=== PATIENT | male | born 1960 | race Caucasian/White ===

== ENCOUNTER 2018-01-08 16:16 | Emergency (ER) | payer OTHER, SELFPAY ==
[2018-01-08] MEDS ORDERED: ONDANSETRON 4 MG/2 ML VIAL ONE (17:08)
[2018-01-08] MEDS ORDERED: MORPHINE 4 MG/ML SYR ONE (17:08)
[2018-01-08 17:28] LABS: Absolute Lymphocytes (CBC) 2.2 K/uL (0.7-4.9); Absolute Monocytes 0.8 K/uL (0.1-1.3); Absolute Neutrophil 6.7 K/uL (1.8-8.0); Basophils % 0.8 % (0-1.3); Hematocrit 50.2 % (39.6-49.0); MCH 30.6 pg (27.0-35.0); MCV 90.1 fL (80-100); MPV 8.4 fL (7.6-11.3); Monocytes % 8.4 % (3.3-12.3); RBC Red Blood Cell Count 5.57 M/uL (4.33-5.43)
[2018-01-08 17:29] LABS: Protime INR 1.03
--- NOTE | 2018-01-08 17:31 | RAD REPORT ---
EXAM DESCRIPTION: VAS - Extremity Venous Uni Ltd - 01/08/2018 5:25 pm CLINICAL HISTORY: Leg swelling and edema. COMPARISON: None. FINDINGS: Right lower extremity venous system was interrogated with Doppler technique. Normal flow, compressibility and augmentation was noted. There is no DVT present. IMPRESSION: No evidence of right lower extremity deep venous thrombosis.
[2018-01-08 17:36] LABS: Potassium 3.5 mEq/L (3.6-5.0)
--- NOTE | 2018-01-08 17:55 | RAD REPORT ---
EXAM DESCRIPTION: Za Single View01/08/2018 5:26 pm CLINICAL HISTORY: Chest pain COMPARISON: none FINDINGS: A 5 millimeter nodular opacity overlies the right upper lobe. An 7 millimeter nodular opac ity overlies the right lower lobe. The left lung appears clear. The heart is normal size IMPRESSION: Two sub centimeter nodular opacities overlying the right lung may represent pulmonary no dules or vessels seen on end. Follow-up PA and lateral chest series in 1 month is recommended for re- evaluation
[2018-01-08 18:17] LABS: Thyroid Stimulating Hormone 2.34 uIU/mL (0.34-5.60)
[2018-01-08 18:22] LABS: Magnesium 2.2 mg/dL (1.8-2.5)
--- NOTE | 2018-01-08 18:23 | EDPHYS ---
Physician Documentation [facility] Name: Fly Benavides Age: 57 yrs Sex: Male : 1960 Arrival Date: 01/08/2018 Time: 16:21 Bed 6 Private MD: ED Physician Derrick Foster HPI: 01/08 17:42 This 57 yrs old Male presents to ER via Ambulatory with complaints of Leg pain. jr8 17:42 The patient presents with pain. The complaints affect the right leg. Onset: The jr8 symptoms/episode began/occurred acutely, yesterday. Modifying factors: The symptoms are alleviated by nothing. the symptoms are aggravated by movement. Associated signs and symptoms: The patient has no apparent associated signs or symptoms. Severity of symptoms: At their worst the symptoms were moderate, in the emergency department the symptoms are unchanged. The patient has not experienced similar symptoms in the past. The patient has not recently seen a physician. denies trauma to leg . Historical: - Allergies: 16:37 No Known Allergies; hb - Home Meds: 16:37 Exforge 5-160 mg oral tab [Active]; hb - PMHx: 16:37 Hypertension; hb - PSHx: 16:37 kidney; hb - Immunization history:: Adult Immunizations up to date. - Social history:: Smoking status: Patient uses tobacco products, smokes one-half pack cigarettes per day. ROS: 17:42 Eyes: Negative for injury, pain, redness, and discharge, ENT: Negative for injury, jr8 pain, and discharge, Neck: Negative for injury, pain, and swelling, Cardiovascular: Negative for chest pain, palpitations, and edema, Respiratory: Negative for shortness of breath, cough, wheezing, and pleuritic chest pain, Abdomen/GI: Negative for abdominal pain, nausea, vomiting, diarrhea, and constipation, Back: Negative for injury and pain, Skin: Negative for injury, rash, and discoloration, Neuro: Negative for headache, weakness, numbness, tingling, and seizure. 17:42 MS/extremity: Positive for pain, of the right leg, Negative for injury or acute deformity, decreased range of motion, erythema, paresthesias, swelling, tenderness. Exam: 17:42 Eyes: Pupils equal round and reactive to light, extra-ocular motions intact. Lids and jr8 lashes normal. Conjunctiva and sclera are non-icteric and not injected. Cornea within normal limits. Periorbital areas with no swelling, redness, or edema. ENT: Nares patent. No nasal discharge, no septal abnormalities noted. Tympanic membranes are normal and external auditory canals are clear. Oropharynx with no redness, swelling, or masses, exudates, or evidence of obstruction, uvula midline. Mucous membranes moist. Neck: Trachea midline, no thyromegaly or masses palpated, and no cervical lymphadenopathy. Supple, full range of motion without nuchal rigidity, or vertebral point tenderness. No Meningismus. Respiratory: Lungs have equal breath sounds bilaterally, clear to auscultation and percussion. No rales, rhonchi or wheezes noted. No increased work of breathing, no retractions or nasal flaring. Abdomen/GI: Soft, non-tender, with normal bowel sounds. No distension or tympany. No guarding or rebound. No evidence of tenderness throughout. Back: No spinal tenderness. No costovertebral tenderness. Full range of motion. Skin: Warm, dry with normal turgor. Normal color with no rashes, no lesions, and no evidence of cellulitis. Neuro: Awake and alert, GCS 15, oriented to person, place, time, and situation. Cranial nerves II-XII grossly intact. Motor strength 5/5 in all extremities. Sensory grossly intact. Cerebellar exam normal. Normal gait. 17:42 Cardiovascular: Rate: tachycardic, Rhythm: irregularly irregular, Pulses: Pulses are 2+ in right radial artery and left radial artery. Heart sounds: normal, normal S1and S2, no S3 or S4, no murmur, no rub, no gallop, Edema: is not appreciated, JVD: is not appreciated. 17:42 Musculoskeletal/extremity: Extremities: grossly normal except: noted in the right leg: no tenderness to palpation , ROM: intact in all extremities, Circulation is intact in all extremities. Sensation intact. Calves: are non-tender, have equal circumference. Vital Signs: 16:35 BP 134 / 91; Pulse 100; Resp 18; Temp 97.4; Pulse Ox 100% on R/A; Weight 104.33 kg; hb Height 5 ft. 9 in. (175.26 cm); Pain 9/10; 16:35 Body Mass Index 33.96 (104.33 kg, 175.26 cm) hb MDM: 16:40 Patient medically screened. 18:18 Data reviewed: vital signs, nurses notes, lab test result(s), EKG, radiologic studies, jr plain films, ultrasound. Data interpreted: Pulse oximetry: on room air is 100 %. Interpretation: normal. Counseling: I had a detailed discussion with the patient and/or guardian regarding: the historical points, exam findings, and any diagnostic results supporting the discharge/admit diagnosis, lab results, radiology results, the need for outpatient follow up, a kitchen runner, to return to the emergency department if symptoms worsen or persist or if there are any questions or concerns that arise at home. ED course: [id number] score of 1. Will start on antiplatelet therapy and to f/u with cardiology . 01/08 17:05 Order name: Basic Metabolic Panel; Complete Time: 18:23 01/08 17:05 Order name: CBC with Diff; Complete Time: 17:42 01/08 17:05 Order name: CPK; Complete Time: 18:23 01/08 17:05 Order name: Magnesium; Complete Time: 18:23 01/08 17:05 Order name: PT-INR; Complete Time: 17:42 01/08 17:05 Order name: TSH; Complete Time: 18:23 01/08 17:05 Order name: XRAY Chest (1 view); Complete Time: 17:56 01/08 17:05 Order name: EKG; Complete Time: 17:06 01/08 17:05 Order name: Cardiac monitoring; Complete Time: 17:12 01/08 17:05 Order name: EKG - Nurse/Tech; Complete Time: 17:12 01/08 17:05 Order name: US Extremity Venous Uni Ltd; Complete Time: 17:42 01/08 17:05 Order name: T4 Free; Complete Time: 18:23 01/08 17:05 Order name: IV Saline Lock; Complete Time: 17:12 01/08 17:05 Order name: Labs collected and sent; Complete Time: 17:12 01/08 17:05 Order name: O2 Per Protocol; Complete Time: 17:13 01/08 17:05 Order name: O2 Sat Monitoring; Complete Time: 17:13 jr8 Administered Medications: 17:10 Drug: morphine 4 mg Route: IVP; Site: left antecubital; sg 17:10 Drug: Zofran 4 mg Route: IVP; Site: left antecubital; sg Disposition: 01/08/18 18:23 Discharged to Home. Impression: Atrial fibrillation and flutter, Pain in right lower leg. - Condition is Stable. - Discharge Instructions: Atrial Fibrillation, Musculoskeletal Pain. - Prescriptions for Tylenol- Codeine #3 300-30 mg Oral Tablet - take 2 tablet by ORAL route every 6 hours As needed; 30 tablet. - Medication Reconciliation Form, Thank You Letter, Antibiotic Education, Prescription Opioid Use form. - Follow up: Ananth Ruiz MD; When: 2 - 3 days; Reason: Recheck today's complaints, Continuance of care, Re-evaluation by your physician. - Problem is new. - Symptoms have improved. Addendum: 01/23/2018 19:52 Co-signature as Attending Physician, Derrick Foster MD I agree with the assessment and k dr plan of care. Signatures: Dispatcher [employer] EDMS Alexis Diaz RN RN Derrick Foster MD MD [facility] Charlie Menendez PA PA jr8 Francie Ortiz RN RN Corrections: (The following items were deleted from the chart) 01/08 18:57 18:23 01/08/2018 18:23 Discharged to Home. Impression: Atrial fibrillation and flutter; sg Pain in right lower leg. Condition is Stable. Forms are Medication Reconciliation Form, Thank You Letter, Antibiotic Education, Prescription Opioid Use. Follow up: Ananth Ruiz; When: 2 - 3 days; Reason: Recheck today's complaints, Continuance of care, Re-evaluation by your physician. Problem is new. Symptoms have improved. jr8
--- NOTE | 2018-01-08 18:23 | ER ---
Nurse's Notes [facility] Name: Fly Benavides Age: 57 yrs Sex: Male : 1960 Arrival Date: 01/08/2018 Time: 16:21 Bed 6 Private MD: Diagnosis: Atrial fibrillation and flutter;Pain in right lower leg Presentation: 01/08 16:33 Presenting complaint: Patient states: Severe right lower leg pain 9/10 since last hb night. Pain is worse when bearing weight/ambulating. Transition of care: patient was not received from another setting of care. Onset of symptoms was January 07, 2018. Care prior to arrival: Medication(s) given: ASA, 1 hr SOLDERER ASSEMBLER. 16:33 Method Of Arrival: Ambulatory hb 16:33 Acuity: COURT 3 hb 18:50 Initial Sepsis Screen: Does the patient meet any 2 criteria? No. Patient's initial sg sepsis screen is negative. Does the patient have a suspected source of infection? No. Patient's initial sepsis screen is negative. Triage Assessment: 17:25 Injury Description: denies injury. sg Historical: - Allergies: 16:37 No Known Allergies; hb - Home Meds: 16:37 Exforge 5-160 mg oral tab [Active]; hb - PMHx: 16:37 Hypertension; hb - PSHx: 16:37 kidney; hb - Immunization history:: Adult Immunizations up to date. - Social history:: Smoking status: Patient uses tobacco products, smokes one-half pack cigarettes per day. Screenin:00 Abuse screen: Denies threats or abuse. Denies injuries from another. Nutritional sg screening: No deficits noted. Tuberculosis screening: No symptoms or risk factors identified. Never had TB. Fall Risk None identified. Assessment: 17:00 General: Appears in no apparent distress. comfortable, well groomed, well developed, sg well nourished, Behavior is calm, cooperative, appropriate for age. Pain: Complains of pain in lateral aspect of right calf and right parker Pain does not radiate. Quality of pain is described as aching, sharp, stabbing. Neuro: Level of Consciousness is awake, alert, obeys commands, Oriented to person, place, time, Model Technician are equal bilaterally Moves all extremities. Full function Gait is steady, Speech is normal, Facial symmetry appears normal. Cardiovascular: Heart tones S1 S2 present Capillary refill is brisk in bilateral fingers Patient's skin is warm and dry. Chest pain is denied. Respiratory: Airway is patent Respiratory effort is even, unlabored, Respiratory pattern is regular, symmetrical, Breath sounds are clear. Respiratory: Denies cough, shortness of breath labored breathing. GI: No signs and/or symptoms were reported involving the gastrointestinal system. : No signs and/or symptoms were reported regarding the genitourinary system. EENT: No signs and/or symptoms were reported regarding the EENT system. Derm: Skin is pink, warm \\T\\ dry. Musculoskeletal: Circulation, motion, and sensation intact. Range of motion: intact in all extremities, Swelling absent Reports pain in lateral aspect of right calf and right parker pt instructed to remain in the bed until instructed otherwise, pt stated understanding, strict bedrest initiated. 17:15 Reassessment: ultrasound at bedside at this time. sg 17:19 Reassessment: pt reports, " i think that pain medication he gave me is actually sg starting to help." Ultrasound is complete, xray at bedside at this time, will continue to monitor. Vital Signs: 16:35 BP 134 / 91; Pulse 100; Resp 18; Temp 97.4; Pulse Ox 100% on R/A; Weight 104.33 kg; hb Height 5 ft. 9 in. (175.26 cm); Pain 9/10; 16:35 Body Mass Index 33.96 (104.33 kg, 175.26 cm) hb ED Course: 16:21 Patient arrived in ED. al2 16:35 Triage completed. hb 16:35 Arm band placed on right wrist. hb 16:40 Charlie Menendez PA is PHCP. jr8 16:40 Derrick Foster MD is Attending Physician. jr8 17:00 Patient has correct armband on for positive identification. Bed in low position. Call sg light in reach. Side rails up X2. Pulse ox on. NIBP on. Warm blanket given. Verbal reassurance given. Head of bed elevated. Elevated right leg. 17:11 Alexis Diaz, RANDOLPH is Primary Nurse. sg 17:13 EKG done, by geotechnical operating engineer. reviewed by Charlie SAMAYOA. vh 17:22 Ultrasound completed. Patient tolerated well. aa4 17:23 X-ray completed. Portable x-ray completed in exam room. Patient tolerated procedure kp1 well. 17:24 XRAY Chest (1 view) In Process Unspecified. EDMS 17:26 US Extremity Venous Uni Ltd In Process Unspecified. EDMS 18:22 Ananth Ruiz MD is Referral Physician. jr8 18:50 No provider procedures requiring assistance completed. IV discontinued, intact, sg bleeding controlled, No redness/swelling at site. Pressure dressing applied. Administered Medications: 17:10 Drug: morphine 4 mg Route: IVP; Site: left antecubital; sg 17:10 Drug: Zofran 4 mg Route: IVP; Site: left antecubital; sg Outcome: 18:23 Discharge ordered by MD. jr8 18:50 Discharged to home ambulatory, with family. sg 18:50 Condition: stable 18:50 Discharge instructions given to patient, Instructed on discharge instructions, follow up and referral plans. no drinking with medication, no driving heavy equipment, medication usage, safety practices, Demonstrated understanding of instructions, follow-up care, medications, Prescriptions given X 1. 18:57 Patient left the ED. sg Signatures: Dispatcher [employer] EDMS Alexis Diaz, RN RN sg Nury Briggs aa4 Charlie Menendez, YAO PA jr8 Mariia Frausto Francie Ortiz, RN RN Kierra De La Rosa kp1 Radha Lobato2
--- NOTE | 2018-01-08 22:11 | EKG ---
Test Date: 2018-01-08 Test Time: 16:49:23 Fiber Artist: [facility] MEASUREMENT RESULTS: Intervals: Rate: 120 NC: QRSD: 86 QT: 318 QTc: 449 [place]: P: NC: QRS: 50 T: 52 INTERPRETIVE STATEMENTS: Atrial fibrillation with rapid ventricular response with premature ventricular or aberrantly conducted complexes Abnormal ECG No previous ECG available for comparison Electronically Signed On 01-08-18 22:10:44 CDT by Wily Adams
== END 2018-01-08 18:57 | disposition home or self-care (01) ==
LOC: ER 16:16
DX: I48.91 Unspecified atrial fibrillation (principal); I48.92 Unspecified atrial flutter; I10 Essential (primary) hypertension
CPT/HCPCS: 36415; 71045; 80048; 82550; 83735; 84439; 84443; 85025; 85610; 93005; 93971; 96374; 96375; 99284; J2405